=== PATIENT | male | born 1980 | race African-American/Black ===

== ENCOUNTER 2016-09-27 20:28 | Emergency (ER) | payer OTHER ==
[2016-09-27 21:15] LABS: BASOPHIL 0.4 % (0-2); EOSINOPHIL 0.8 % (0-5); HCT 47.7 % (42.0-52.0); LYMPHOCYTE 14.6 % (15-48); MCH 29.1 pg (25.0-31.0); MCHC 35.6 g/dL (32.0-36.0); MCV 81.7 fL (78.0-100.0); MONOCYTE 12.2 % (0-12); MPV 9.5 fL (6.0-9.5); PLT 256 K/uL (150-400); RBC 5.84 M/uL (4.70-6.00); RDW 13.8 % (11.5-14.0); WBC 9.2 K/uL (4.0-10.5)
[2016-09-27 21:31] LABS: ALBUMIN 4.3 g/dL (3.5-5.0); BILIRUBIN - TOTAL 0.4 mg/dL (0.1-1.0); CREATININE 1.2 mg/dL (0.7-1.2); GLOBULIN (CALCULATION) 3.2 g/dL (2.2-4.2); POTASSIUM 3.7 mmol/L (3.5-5.1); TOTAL PROTEIN 7.5 g/dL (6.4-8.3)
== END 2016-09-27 23:25 | disposition home or self-care (01) ==
LOC: FER 20:28
PROVIDERS: Emergency Medicine Emergency Medical Services
DX: F10.20 Alcohol dependence, uncomplicated (principal); R11.10 Vomiting, unspecified; E86.0 Dehydration
CPT/HCPCS: 36415; 80053; 82150; 83690; 85025; J2405

== ENCOUNTER 2021-06-14 14:36 | Emergency (ER) | payer OTHER ==
[~2021-06-14 14:36] MED LIST: ALDARA1 EACH TOP
[2021-06-14 15:02] LABS: BILIRUBIN NEGATIVE (NEGATIVE); BLOOD TRACE-INTACT Ery/uL (NEGATIVE); CLARITY CLEAR (CLEAR); COLOR YELLOW (YELLOW); GLUCOSE (U) NORMAL (NORMAL); LEUKOCYTES TRACE Leu/uL (NEGATIVE); NITRITE NEGATIVE (NEGATIVE); PROTEIN NEGATIVE (NEGATIVE); SPECIFIC GRAVITY >=1.030 (1.001-1.030); UROBILINOGEN 0.2 mg/dL (0.2-1.0)
[2021-06-14] MEDS ORDERED: VIBRAMYCIN100 MG PO (15:27)
[2021-06-17 00:11] LABS: CHLAMYDIA TRACHOMATIS, NAA Negative (Negative); NEISSERIA GONORRHOEAE, NAA Positive (Negative)
== END 2021-06-14 15:40 | disposition home or self-care (01) ==
LOC: FER 14:36
PROVIDERS: Nurse Practitioner Family
DX: N39.0 Urinary tract infection, site not specified (principal); R36.9 Urethral discharge, unspecified; I10 Essential (primary) hypertension; Z20.2 Contact with and (suspected) exposure to infections with a predominantly sexual mode of transmission
CPT/HCPCS: 81001; 87088; 87491; 87591; 99283; J0696; Q0162